=== PATIENT | female | born 1980 | race Caucasian/White ===

== ENCOUNTER 2017-01-11 13:20 | Emergency (ER) | payer OTHER ==
[~2017-01-11] VITALS: Ht 147.3 cm; Wt 68.2 kg
[~2017-01-11 13:20] MED LIST: MIRENA IU
[2017-01-11 14:42] LABS: HEMATOCRIT 38.8 % (37.0-47.0); IMMATURE GRANULOCYTES 0.4 % (0.0-1.0); MEAN CELL VOLUME 90.4 fL CALC (80.0-100.0); MEAN CORPUSCULAR HGB 30.3 pG CALC (26.0-32.0); MEAN CORPUSCULAR HGB CONC 33.5 g/L CALC (32.0-36.0); NEUT# 8.35 thou/uL (2.00-7.15); RED BLOOD COUNT 4.29 mill/uL (4.20-5.60); RED CELL DISTRI WIDTH 13.2 % (11.5-15.5)
[2017-01-11 15:02] LABS: URINE BLOOD DIPSTICK NEGATIVE (NEGATIVE); URINE CLARITY CLEAR; URINE COLOR YELLOW; URINE GLUCOSE - DIPSTICK NEGATIVE (NEGATIVE); URINE KETONE TRACE mg/dL (NEGATIVE); URINE LEUK ESTERASE NEGATIVE (NEGATIVE); URINE NITRITE - DIPSTICK NEGATIVE (Negative); URINE PROTEIN - DIPSTICK NEGATIVE (NEG-TRACE); URINE SPECIFIC GRAVITY >=1.030
[2017-01-11 15:07] LABS: URINE BILIRUBIN - DIPSTICK SMALL (NEGATIVE)
[2017-01-11 15:22] LABS: AMYLASE 63 u/l (30-110); LIPASE 73 u/l (23-300)
[2017-01-11 15:25] LABS: ALBUMIN 4.5 g/dL (3.2-5.0); ALKALINE PHOSPHATASE 68 u/l (38-126); ANION GAP 17 (6-22 (CALC)); BILIRUBIN, TOTAL 0.8 mg/dL (0.0-1.4); BUN 15 mg/dL (7-17); BUN/CREATININE RATIO 23 (12-20 (CALC)); CALCIUM 8.5 mg/dL (8.4-10.2); CARBON DIOXIDE 25 mmol/l (22-30); CHLORIDE 103 mmol/l (95-108); CREATININE 0.6 mg/dL (0.5-1.0); GFR > 60 ML/MIN (>=60 (CALC)); GFR FOR AFR.AMER. > 60 ML/MIN (>=60 (CALC)); GLUCOSE 87 mg/dL (65-105); POTASSIUM 3.7 mmol/l (3.5-5.1); SGOT/AST 44 u/l (14-36); SGPT/ALT 50 u/l (9-52); SODIUM 141 mmol/l (137-146); TOTAL PROTEIN 8.2 g/dL (6.3-8.2)
[2017-01-11 15:35] LABS: MYOGLOBIN 37 ng/mL (0 - 62)
[2017-01-11 16:49] VITALS: BP 102/54
== END 2017-01-11 16:52 | disposition home or self-care (01) | DRG 153 ==
LOC: ED 13:20
PROVIDERS: Emergency Medicine
DX: J02.0 Streptococcal pharyngitis (principal); G89.29 Other chronic pain; R10.31 Right lower quadrant pain; R11.0 Nausea
CPT/HCPCS: Q9967